=== PATIENT | male | born 1985 | race Caucasian/White ===

== ENCOUNTER 2019-01-21 07:36 | Emergency (ER) | payer SELFPAY ==
[2019-01-21] MEDS: CEFTRIAXONE 1 GM INJ IM (07:54)
[2019-01-21] MEDS: LIDOCAINE 1% (MPF) 5 ML VIAL INJ (07:54)
== END 2019-01-21 08:08 | disposition home or self-care (01) ==
LOC: FTE 07:36
DX: H05.012 Cellulitis of left orbit (principal)
CPT/HCPCS: 96372; 99284-25